=== PATIENT | female | born 1970 | race Caucasian/White ===

== ENCOUNTER 2019-12-09 15:50 | Outpatient (CLI) | payer OTHER, SELFPAY ==
--- NOTE | ~2019-12-09 | MR_ITS ---
EXAMINATION: MR shoulder RT wo con DATE: 12/09/2019 16:40 INDICATION: Right shoulder pain with strain of muscles and tendons of the fundal wall of the thorax. TECHNIQUE: Magnetic resonance imaging (MRI) of the right shoulder was performed without intravenous c ontrast. Sequences included axial PD-weighted FS FSE, coronal oblique PD-weighted FS FSE, coronal obl ique T2-weighted FS FSE, sagittal PD-weighted FS FSE, and sagittal T1-weighted SE. COMPARISON: Right shoulder radiographs dated 11/28/2019 FINDINGS: Coracoacromial arch: The acromion undersurface is flat in morphology (type I). The coracoacromial ligament is normal. Mini mal acromioclavicular osteoarthritis. Rotator cuff: Mild supraspinatus tendinopathy with small bursal sided tear along the wrist are aspect of the superi or facet footplate which measures 5 mm AP involves approximately one third of the tendon thickness i s minimal separation of the tear margins. The infraspinatus, teres minor and subscapularis tendons ar e normal. Normal rotator cuff muscle bulk and signal. Biceps tendon, glenoid labrum and glenohumeral cartilage: Long head of the biceps tendon is normal. Glenoid labrum is normal. Glenohumeral cartilage is normal. Fluid: Physiologic amount of fluid in the glenohumeral joint and biceps tendon sheath. No loose osteochondra l bodies. Small amount of fluid in the subacromial/subdeltoid bursa consistent with mild bursitis. Bones/other: Normal marrow signal with no edema, fracture or pathologic marrow replacing process. Subtle patchy fl uid signal in the mid to posterior deltoid muscle which could be related to low-grade muscle strain o r nonspecific myositis which has a wide differential. IMPRESSION: 1. Small mild bursal sided rim rent tear at the insertion of the distal supraspinatus tendon. 2. Possible subacromial/subdeltoid bursitis. 3. Subtle patchy fluid signal at the mid to posterior deltoid muscle which could be related to low-gr dunia strain or nonspecific myositis. Reviewed, dictated and finalized at location A. IMPRESSION: 1. Small mild bursal sided rim rent tear at the insertion of the distal suprasp inatus tendon. 2. Possible subacromial/subdeltoid bursitis. 3. Subtle patchy fluid signal at the mid to posterior deltoid muscle which coul d be related to low-grade strain or nonspecific myositis.
== END 2019-12-09 15:51 | disposition home or self-care (01) ==
PROVIDERS: Visit Provider Orthopaedic Surgery
DX: S29.011A Strain of muscle and tendon of front wall of thorax, initial encounter (principal); X58.XXXA Exposure to other specified factors, initial encounter
CPT/HCPCS: 73221